=== PATIENT | female | born 1940 | race Caucasian/White ===

== ENCOUNTER 2017-06-20 23:10 | Emergency (ER) | payer OTHER, BC ==
[2017-06-20 23:17] VITALS: RESP 18; TEMP 97.5
--- NOTE | 2017-06-20 23:58 | CPEKG ---
Heart Rate: 64 RR Interval: 938 QRSD Interval: 98 QT Interval: 408 QTC Interval: 421 QRS [place]: 50 T Wave [place]: 28 EKG Severity - ABNORMAL ECG - EKG Impression: ATRIAL FIBRILLATION, V-RATE 54-74 EKG Impression: BORDERLINE INFERIOR Q WAVES Electronically Signed By: Zack Yo 21-Jun-2017 07:27:16
[2017-06-20] MEDS ORDERED: MECLIZINE HCL 25 MG TAB PO ONE (23:59)
[2017-06-20] MEDS ORDERED: LORazepam 2 MG/ML INJ IVP ONE (23:59)
[2017-06-21 00:05] LABS: % IMMATURE GRANULYOCYTES 0.3 % (0.0-1.1); ABSOLUTE IMMATURE GRANULOCYTES 0.02 10^3/uL (0.00-0.10); ADD DIFF? NO; ADD MORPH? NO; ADD SCAN? NO; ATYPICAL LYMPHOCYTE FLAG 0 (0-99); FRAGMENT RBC FLAG 0 (0-99); HEMATOCRIT 42.4 % (38.0-47.0); HEMOGLOBIN 14.3 g/dL (12.6-16.3); LEFT SHIFT FLG 0 (0-99); LIPEMIA HEMOLYSIS FLAG 80 (0-99); MEAN CELL HEMOGLOBIN 31.8 pg (27.9-34.1); MEAN CELL HEMOGLOBIN CONCENTR. 33.7 g/dL (32.4-36.7); MEAN CELL VOLUME 94.2 fL (81.5-99.8); MEAN PLATELET VOLUME 10.2 fL (8.7-11.7); PLATELET CLUMPS FLAG 10 (0-99); PLATELET COUNT 213 10^3/uL (150-400); RED CELL DISTRIBUTION WIDTH 12.6 % (11.5-15.2)
[2017-06-21] MEDS ORDERED: GADOBUTROL 10 ML VIAL IVP ONE (00:21)
[2017-06-21 00:25] LABS: INR 1.03 (0.83-1.16); PROTIME(PATIENT) 13.7 SEC (12.0-15.0)
[2017-06-21 00:26] LABS: APTT 29.8 SEC (23.0-38.0)
[2017-06-21 00:31] LABS: ANION GAP 14 mEq/L (8-16); CALCIUM 9.4 mg/dL (8.5-10.4); CARBON DIOXIDE 23 mEq/l (22-31); CHLORIDE 105 mEq/L (97-110); CREATININE 0.8 mg/dL (0.6-1.0); GLOMERULAR FILTRATION RATE > 60; GLUCOSE 114 mg/dL (70-100); POTASSIUM 4.5 mEq/L (3.5-5.2); SODIUM 142 mEq/L (134-144)
[2017-06-21 00:45] LABS: TROPONIN I < 0.012 ng/mL (0.000-0.034)
--- NOTE | 2017-06-21 01:04 | EDPHY ---
H & P <Zack oY - Last Filed: 06/21/17 02:06> Stated Complaint: dizziness, anxiety - Personal History Current Tetanus/Diphtheria Vaccine: Unsure Tetanus Vaccine Date: less than 10 years - Medical/Surgical History Hx Asthma: No Hx Chronic Respiratory Disease: No Hx Diabetes: No Hx Cardiac Disease: Yes Hx Renal Disease: No Hx Cirrhosis: No Hx Alcoholism: No Hx HIV/AIDS: No Hx Splenectomy or Spleen Trauma: No Other PMH: medical HTN, Atrial Fibrillation, sleep apnea. surgery partial hysterectomy - Social History Smoking Status: Never smoked <Enoch Menezes - Last Filed: 06/21/17 20:31> Time Seen by Provider: 06/20/17 23:14 HPI/ROS: Chief complaint: Dizziness History of present illness: This is a 76-year-old female, who's medical history includes hypertension, and atrial fibrillation treated with Eliquis, who presents to the emergency department for evaluation of dizziness. Patient reports she was driving home with her from [place] this evening. Upon getting home she stepped out of the car and started to feel dizzy. She describes the dizziness as feeling off balance like she is going to fall over. She has developed associated discomfort across the back of her head. She denies precipitating factors. She states worse with movement, better with rest. Occasional nausea but no vomiting. She denies other associated signs or symptoms including no paresthesias, no weakness or paralysis, no bowel or bladder dysfunction. Review of systems: A 10 point review of systems was obtained and other than described above was negative (Enoch Menezes) - Physical Exam Exam: General Appearance: Alert, nontoxic. Eyes: Pupils equal and round no pallor or injection. ENT, Mouth: Mucous membranes moist. Respiratory: There are no retractions, lungs are clear to auscultation. Cardiovascular: Regular regular rhythm. Normal rate. Gastrointestinal: Abdomen is soft and non tender, no masses, bowel sounds normal. Neurological: Alert and oriented x4. Cranial nerves 2-12 grossly intact. Strength and sensation intact and symmetric. Patient has difficulty with cerebellar testing using finger to nose although good heel to enciso testing. No pronator drift. Skin: Warm and dry, no rashes. Musculoskeletal: Neck is supple non tender. Extremities are symmetrical, full range of motion. Psychiatric: Patient is oriented X 3, there is no agitation. (Enoch Menezes) Constitutional: Initial Vital Signs Temperature (C) 36.4 C 06/20/17 23:16 Heart Rate 75 06/20/17 23:16 Respiratory Rate 18 06/20/17 23:16 Blood Pressure 148/81 H 06/20/17 23:16 O2 Sat (%) 97 06/20/17 23:16 O2 Delivery Mode Room Air Allergies/Adverse Reactions: Sulfa (Sulfonamide Antibiotics) [Sulfa(Sulfonamide Antibiotics)] Allergy ( Verified 06/20/17 23:17) Home Medications: Medication Instructions Recorded Ascorbic Acid [Vitamin C 500 mg 500 mg PO DAILY 06/03/12 (*)] Cholecalciferol Vit D3 [Vitamin D3 500 units PO DAILY 06/03/12 (*)] Herbals/Supplements -Info Only 1 each PO AD 06/03/12 Multivitamins [Multivitamin (*)] 1 each PO DAILY 06/03/12 Nebivolol HCl [Bystolic 5 mg (RX)] 1 tab PO DAILY@1800 05/08/13 Eliquis 06/20/17 Meclizine HCl [Meclizine HCl 25 mg 25 mg PO BID 10 Days #10 tab 06/21/17 (RX,OTC)] Medical Decision Making - Diagnostics Imaging: Discussed imaging studies w/ call or contact centre operator Radiologist <Zack Yo - Last Filed: 06/21/17 02:06> <Enoch Menezes - Last Filed: 06/21/17 20:31> - Diagnostics Imaging Results: Imaging Impressions Brain MRI 06/21/17 00:25 Impression: 1. Underlying atrophy and mild white matter disease, without evidence of acute cortical ischemia, mass or mass effect, intracranial hemorrhage. The study was performed as an emergency on-call case and discussed by telephone with Dr. Zack Yo at 2:00 AM hrs. The final interpretation is concordant with the original communication. . Neck MRA 06/21/17 00:25 Impression: Negative magnetic resonance angiogram of the neck. The study was performed as an emergency on-call case and discussed by telephone with Dr. Zack Yo at 2:00 AM hrs. The final interpretation is concordant with the original communication. Measurement of carotid stenosis is based on the residual internal carotid diameter with [place] Symptomatic Carotid Endarterectomy Trial (NASCET) based stenosis levels. Head MRA 06/21/17 23:25 Impression: Negative MR Angiography of the [facility]. 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 The study was performed as an emergency on-call case and discussed by telephone with Dr. Zack Yo at 2:00 AM hrs. The final interpretation is concordant with the original communication. MRI and MRA negative for acute stroke forced diagnosis per Dr. Leon. (Zack Yo) ED Course/Re-evaluation: 020 patient signed out to me by CASSY menezes pending MRI and MRA of the brain. 020 MRI of the brain shows some white matter disease but no stroke. MRA is negative for stenosis. Patient is improved. Will discharge per CASSY Menezes's plan. (Zack Yo) Patient discussed with my secondary supervising physician Dr. Zack Quigley. Patient presents to the emergency department describing vertigo with pain in the back of her head. Physical exam does reveal compromised cerebellar testing with finger to nose. Blood studies are obtained and unremarkable. Patient is treated with meclizine and Ativan with improvement in symptoms. She will undergo an MRI to further investigate symptoms. This is pending at time of dictation at end of shift. Care of patient is turned over to my attending physician Dr. Zack Quigley. I suspect if MRIs are negative she can go home and be treated symptomatically. Dr. Quigley will follow up on any findings on MRI otherwise. (Enoch Menezes) - Data Points Laboratory Results: Laboratory Results 06/20/17 23:53 06/20/17 23:53 Medications Given: Discontinued Medications Lorazepam (Ativan Injection) 0.5 mg IVP EDNOW ONE Stop: 06/21/17 00:00 Last Admin: 06/21/17 00:33 Dose: 0.5 mg Meclizine HCl (Meclizine Hcl) 25 mg PO EDNOW ONE Stop: 06/21/17 00:00 Last Admin: 06/21/17 00:11 Dose: 25 mg Departure <Zack Yo - Last Filed: 06/21/17 02:06> <Enoch Menezes - Last Filed: 06/21/17 20:31> - Departure Disposition: Home, Routine, Self-Care Clinical Impression: Vertigo Condition: Good Instructions: Vertigo (ED) Additional Instructions: Follow-up with your primary care doctor next week for recheck If symptoms worsen or new symptoms develop return to the emergency room for recheck Referrals: Jyoti Villatoro MD [Primary Care Provider] - As per Instructions Prescriptions: Meclizine HCl [Meclizine HCl 25 mg (RX,OTC)] 25 mg PO BID 10 Days #10 tab
[2017-06-21 02:07] VITALS: BP 117/84; PULSE 73; O2SAT 94
== END 2017-06-21 02:30 | disposition home or self-care (01) ==
LOC: EDUNIT#
DX: R42 Dizziness and giddiness (principal); I10 Essential (primary) hypertension
CPT/HCPCS: 70544; 70548; 70551; 93005; 96374; 99285; A9585; J2060

== ENCOUNTER → 2017-07-02 | Outpatient (CLI) | payer OTHER, BC | LOC: FIMAGING 14:26 | PROVIDERS: ATTEND Family Medicine | DX: M85.89 Other specified disorders of bone density and structure, multiple sites (principal) ==

== ENCOUNTER 2018-01-30 18:51 | Emergency (ER) | payer OTHER, BC ==
[2018-01-30 18:57] VITALS: BP 140/85
--- NOTE | 2018-01-30 19:22 | EDPHY ---
H & P Stated Complaint: Poss skin infection on back Source: Patient Exam Limitations: No limitations - Personal History Current Tetanus/Diphtheria Vaccine: No Tetanus Vaccine Date: less than 10 years - Medical/Surgical History Hx Asthma: No Hx Chronic Respiratory Disease: No Hx Diabetes: No Hx Cardiac Disease: Yes Hx Renal Disease: No Hx Cirrhosis: No Hx Alcoholism: No Hx HIV/AIDS: No Hx Splenectomy or Spleen Trauma: No Other PMH: medical HTN, Atrial Fibrillation, sleep apnea. surgery partial hysterectomy - Social History Smoking Status: Never smoked Time Seen by Provider: 01/30/18 19:20 HPI/ROS: HPI: This is a 77-year-old female who presents with Chief Complaint: Possible skin infection on back Location: Upper back Quality: possible skin infection Duration: 1 day Signs and Symptoms: no fever, no nausea, no vomiting, no diarrhea, no urinary symptoms, no chest pain, no shortness of breath, no wheezing, no cough, no sore throat, no neck stiffness, no joint pain, no swollen glands, no ear pain, no rash Timing:unknown Severity:mild Context: Patient has a history of keratosis is status post liquid nitrogen removal of lesion 2 days ago by [facility]. Patient reports that she looked in the mirror this at afternoon and noticed redness surrounding the area that was excised. She is concerned about infection. She called the office at 4 :00 p.m. But they were closed. She has an allergy to sulfa medications. Modifying Factors: None Comment: ROS: see HPI Constitutional: no fever, no chills, no weight loss Eyes: No blurred vision Respiratory: No shortness of breath, no cough Cardiovascular: No chest pain, no palpitations Gastrointestinal: No nausea, no vomiting, no diarrhea, no hematemesis, no blood in stool Genitourinary: No dysuria, no blood in urine Extremities: No myalgias, no edema Neurologic: No weakness, no numbness Skin: No rashes, no petechiae Hematologic: No bruising, no bleeding MEDICAL/SURGICAL/SOCIAL HISTORY: medical HTN, Atrial Fibrillation, sleep apnea surgery partial hysterectomy Social history: Never smoked. Family history noncontributory. CONSTITUTIONAL: Extremely polite and cooperative elderly white female, awake and alert, no obvious distress HEENT: Atraumatic and normocephalic, PERRL, EOMI. Nares patent; no rhinorrhea; no nasal mucosal edema. Tympanic membranes clear. Oropharynx clear, no exudate and moist pink mucosa. Airway patent. No lymphadenopathy. No meningismus. Cardiovascular: Normal S1/S2, regular rate, regular rhythm, without murmur rub or gallop. PULMONARY/CHEST: Symmetrical and nontender. Clear to auscultation bilaterally. Good air movement. No accessory muscle usage. ABDOMEN: Soft, nondistended, nontender, no rebound, no guarding, no peritoneal signs, no masses or organomegaly. No CVAT. EXTREMITIES: 2/2 pulses, strength 5/5, no deformities, no clubbing, no cyanosis or edema. NEUROLOGICAL: no focal neuro deficits. GCS 15. SKIN: Warm and dry, 1 in annular keratotic area that is hyper pigmented with mild surrounding erythema, no fluctuance on the upper back area. no rash. Good capillary refill. (Lalitha Abbasi) Constitutional: Initial Vital Signs Temperature (C) 36.5 C 01/30/18 18:54 Heart Rate 97 01/30/18 18:54 Respiratory Rate 18 01/30/18 18:54 Blood Pressure 140/85 H 01/30/18 18:54 O2 Sat (%) 94 01/30/18 18:54 O2 Delivery Mode Room Air Allergies/Adverse Reactions: Sulfa (Sulfonamide Antibiotics) [Sulfa(Sulfonamide Antibiotics)] Allergy ( Verified 01/30/18 18:57) Home Medications: Medication Instructions Recorded Ascorbic Acid [Vitamin C 500 mg 500 mg PO DAILY 06/03/12 (*)] Cholecalciferol Vit D3 [Vitamin D3 500 units PO DAILY 06/03/12 (*)] Herbals/Supplements -Info Only 1 each PO AD 06/03/12 Multivitamins [Multivitamin (*)] 1 each PO DAILY 06/03/12 Nebivolol HCl [Bystolic 5 mg (RX)] 1 tab PO DAILY@1800 05/08/13 Eliquis 06/20/17 Meclizine HCl [Meclizine HCl 25 mg 25 mg PO BID 10 Days #10 tab 06/21/17 (RX,OTC)] Cephalexin [Keflex (*)] 500 mg PO TID #21 cap 01/30/18 Medical Decision Making ED Course/Re-evaluation: No active bleeding from site. Shows mild irritation of the surgical site with mild erythema. Placed on Keflex for antibiotic prophylaxis with local wound care. This patient was seen under the supervision of my secondary supervising physician. I evaluated care for this patient independently. Discussed this patient with Dr. Izaguirre. (Lalitha Abbasi) I did not see this patient while she was in the emergency department. However her care was discussed with the PA while the patient was in the department. I agree with treatment plan and management (Connor Izaguirre) Differential Diagnosis: Differential diagnosis includes but is not limited to cellulitis, abscess, shingles. (Lalitha Abbasi) Departure - Departure Disposition: Home, Routine, Self-Care Clinical Impression: Keratosis, Status post cryotherapy of skin lesion Condition: Good Instructions: Cellulitis (ED) Additional Instructions: Wash the site daily with mild soap and water; then pat dry; apply topical antibiotic ointment like Polysporin and clean sterile dressing until fully healed. Take Tylenol 650 mg every 4 hours and/or Ibuprofen 600 mg every 8 hours with food as needed for pain. Take Keflex 3 times a day x7 days until complete. Do not skip a dose. If symptoms do not improve over the next 3-5 days please follow-up with [facility] for repeat examination. Referrals: Jyoti Villatoro MD [Primary Care Provider] - As per Instructions [facility] [Provider Group] - As per Instructions Prescriptions: Cephalexin [Keflex (*)] 500 mg PO TID #21 cap
== END 2018-01-30 19:38 | disposition home or self-care (01) ==
DX: L57.0 Actinic keratosis (principal); I10 Essential (primary) hypertension; Z48.817 Encounter for surgical aftercare following surgery on the skin and subcutaneous tissue; W89.8XXA Exposure to other man-made visible and ultraviolet light, initial encounter

== ENCOUNTER → 2018-07-18 | Outpatient (CLI) | payer OTHER, BC | LOC: BMCIMAGING 12:18 | PROVIDERS: ATTEND Family Medicine | DX: M25.532 Pain in left wrist (principal); R07.81 Pleurodynia; Z87.81 Personal history of (healed) traumatic fracture ==

== ENCOUNTER → 2018-08-19 | Outpatient (CLI) | payer OTHER, BC | LOC: BMCIMAGING 10:19 | PROVIDERS: ATTEND Orthopaedic Surgery Hand Surgery | DX: S69.92XA Unspecified injury of left wrist, hand and finger(s), initial encounter (principal); M19.032 Primary osteoarthritis, left wrist; M18.12 Unilateral primary osteoarthritis of first carpometacarpal joint, left hand ==